=== PATIENT | female | born 1965 ===

== ENCOUNTER 2021-01-12 08:41 | Outpatient (CLI) | payer OTHER ==
[~2021-01-12 08:41] MED LIST: CIPRO500 MG PO; KETO10TA2 PO
== END 2021-01-12 08:50 | disposition home or self-care (01) ==
LOC: RX STUDY 08:41
PROVIDERS: ATTEND Internal Medicine Cardiovascular Disease
DX: K44.9 Diaphragmatic hernia without obstruction or gangrene (principal)

== ENCOUNTER 2022-01-12 10:22 | Outpatient (CLI) | payer OTHER | END 2022-01-12 10:29 | disposition home or self-care (01) | LOC: SONOGRAMA 10:22 | DX: E03.9 Hypothyroidism, unspecified (principal) ==